=== PATIENT | female | born 1975 | race American Indian/Alaskan Native ===

== ENCOUNTER 2024-12-20 15:48 | Emergency (ER) | payer OTHER ==
[2024-12-20] MEDS ORDERED: Sodium Chloride 0.9% 10 ML Syringe FLUSH PRN (16:48)
== END 2024-12-20 19:01 | disposition home or self-care (01) ==
LOC: JD.ED 15:48
DX: H53.2 Diplopia (principal); R51.9 Headache, unspecified; Z79.899 Other long term (current) drug therapy
CPT/HCPCS: 70450; 70450-26; 93005; 93010; 99284